=== PATIENT | male | born 1955 | race Hispanic/Latino ===

== ENCOUNTER → 2017-07-06 | Outpatient (CLI) | payer MEDICARE ==
[~2017-07-06] MED LIST: AMOX-426 PO; FURO20TA4 PO; HEPA20DI7 IM; INSLAN SQ; IRON1CAP31 PO; LACT10SO32 PO; PANT40TA25 PO; SPIR50TA PO; SUCR1ORA5 PO; TYL3 PO
== END ==
LOC: OIH 09:57
PROVIDERS: ATTEND Internal Medicine Gastroenterology
DX: J98.11 Atelectasis (principal)
CPT/HCPCS: 71046

== ENCOUNTER 2017-09-28 05:04 | Day surgery (SDC) | payer MEDICARE ==
[2017-09-28] MEDS ORDERED: SODIUM CHLORIDE 0.9% 1000ML 1,000 ML IV ONE (05:46)
== END 2017-09-28 07:00 | disposition home or self-care (01) ==
LOC: ENDO 05:04 → DAH 05:30 → ENDO 07:00
PROVIDERS: ATTEND Internal Medicine Gastroenterology
DX: K92.2 Gastrointestinal hemorrhage, unspecified (principal); Z53.9 Procedure and treatment not carried out, unspecified reason
CPT/HCPCS: J7030

== ENCOUNTER 2017-10-21 06:42 | Day surgery (SDC) | payer MEDICARE ==
[~2017-10-21] VITALS: Ht 167.6 cm; Wt 153.0 kg
[~2017-10-21 06:42] MED LIST changes: +SODIUM CHLORIDE 0.9% 1000ML 1,000 ML IV ONE
[2017-10-21 07:29] VITALS: BP 146/65
[2017-10-21] MEDS ORDERED: PROPOFOL 10 MG/ML 20ML VIAL IV ONE (08:17)
[2017-10-21 08:41] VITALS: BP 89/40
== END 2017-10-21 09:20 | disposition home or self-care (01) ==
LOC: ENDO 06:42 → DAH 06:42 → ENDO 09:20
PROVIDERS: ATTEND Internal Medicine
DX: D12.5 Benign neoplasm of sigmoid colon (principal); K57.30 Diverticulosis of large intestine without perforation or abscess without bleeding; K72.90 Hepatic failure, unspecified without coma; K74.60 Unspecified cirrhosis of liver; I12.0 Hypertensive chronic kidney disease with stage 5 chronic kidney disease or end stage renal disease; N18.6 End stage renal disease; D64.9 Anemia, unspecified; Z79.899 Other long term (current) drug therapy; Z90.49 Acquired absence of other specified parts of digestive tract
CPT/HCPCS: 45380; 88305; A4606; J2704; J7030